=== PATIENT | female | born 1950 | race American Indian/Alaskan Native ===

== ENCOUNTER 2018-08-08 07:13 | Emergency (ER) | payer MEDICARE ==
[2018-08-08 07:20] VITALS: BP 148/80
[2018-08-08] MEDS ORDERED: TORADOL IM ONE (08:01)
[2018-08-08] MEDS ORDERED: NORCO 7.5/325 PO ONE (08:04)
--- NOTE | 2018-08-08 08:07 | Emergency Department Report ---
ED Back Pain/Injury HPI - General Chief Complaint: Back Pain/Injury Stated Complaint: BACK/LEG PAIN Time Seen by Provider: 08/08/18 07:29 Source: patient Limitations: No Limitations - History of Present Illness Initial Comments: This is a 67-year-old female nontoxic, well nourished in appearance, no acute signs of distress presents to the ED with c/o of lower back pain. Patient states that pain radiates through to his left lower extremity. Patient denies any trauma. Denies any bladder or bowel instability. Patient denies any urinary symptoms. Denies any fever, chills, nausea, vomiting, headache, stiff neck, chest pain or shortness of breath. Patient denies any numbness or tingling. Denies any allergies. PMH includes HTN and DM. MD Complaint: back pain -: This morning Similar Symptoms Previously: Yes Place: home Radiation: left leg Severity: mild Severity scale (0 -10): 8 Quality: aching Consistency: intermittent Improves With: immobilization, sitting upright Worsens With: movement, walking Context: while lifting, turning/twisting Associated Symptoms: denies other symptoms. denies: confusion, weakness, chest pain, numbness, difficulty walking, cough, difficulty urinating, diaphoresis, incontinence, fever/chills, constipation, headaches, abdominal pain, loss of appetite, malaise, nausea/vomiting, rash, seizure, shortness of breath, syncope - Related Data Previous Rx's Medication Instructions Recorded Last Taken Type Acetaminophen/Codeine [Tylenol #3] 1 tab PO Q6H PRN #15 tab 10/25/14 Unknown Rx Amoxicillin [Trimox CAP] 500 mg PO Q8H #30 capsule 10/25/14 Unknown Rx predniSONE [Deltasone] 20 mg PO BID #10 tab 10/25/14 Unknown Rx Ibuprofen [Motrin] 600 mg PO Q8H PRN #20 tablet 08/08/18 Unknown Rx methOCARBAMOL [Robaxin TAB] 500 mg PO BID PRN #10 tablet 08/08/18 Unknown Rx Allergies Allergy/AdvReac Type Severity Reaction Status Date / Time No Known Allergies Allergy Verified 08/08/18 07:15 ED Review of Systems ROS: Stated complaint: BACK/LEG PAIN Other details as noted in HPI Constitutional: denies: chills, fever Eyes: denies: eye pain, eye discharge, vision change ENT: denies: ear pain, throat pain Respiratory: denies: cough, shortness of breath, wheezing Cardiovascular: denies: chest pain, palpitations Endocrine: no symptoms reported Gastrointestinal: denies: abdominal pain, nausea, diarrhea Genitourinary: denies: urgency, dysuria, discharge Musculoskeletal: back pain. denies: joint swelling, arthralgia Skin: denies: rash, lesions Neurological: denies: headache, weakness, paresthesias Psychiatric: denies: anxiety, depression Hematological/Lymphatic: denies: easy bleeding, easy bruising ED Past Medical Hx - Past Medical History Hx Hypertension: Yes Hx Arthritis: Yes (left knee) - Surgical History Hx Cholecystectomy: Yes - Social History Smoking Status: Never Smoker Substance Use Type: None - Medications Home Medications: Home Medications Medication Instructions Recorded Confirmed Last Taken Type Acetaminophen/Codeine [Tylenol #3] 1 tab PO Q6H PRN #15 tab 10/25/14 Unknown Rx Amoxicillin [Trimox CAP] 500 mg PO Q8H #30 capsule 10/25/14 Unknown Rx predniSONE [Deltasone] 20 mg PO BID #10 tab 10/25/14 Unknown Rx Ibuprofen [Motrin] 600 mg PO Q8H PRN #20 tablet 08/08/18 Unknown Rx methOCARBAMOL [Robaxin TAB] 500 mg PO BID PRN #10 tablet 08/08/18 Unknown Rx ED Physical Exam - General Limitations: No Limitations General appearance: alert, in no apparent distress - Head Head exam: Present: atraumatic, normocephalic - Eye Eye exam: Present: normal appearance - Neck Neck exam: Present: normal inspection, full ROM - GI/Abdominal GI/Abdominal exam: Present: soft, normal bowel sounds. Absent: distended, tenderness, guarding, rebound, rigid, diminished bowel sounds - Extremities Exam Extremities exam: Present: normal inspection, full ROM, normal capillary refill. Absent: tenderness, calf tenderness - Back Exam Back exam: Present: normal inspection, full ROM, paraspinal tenderness (right lumbar paraspinal area). Absent: tenderness, CVA tenderness (R), CVA tenderness (L), muscle spasm, vertebral tenderness, rash noted - Expanded Back Exam Expanded Back exam: Absent: saddle anesthesia Back exam: Negative Straight Leg Raising: Left, Right - Neurological Exam Neurological exam: Present: alert, oriented X3 - Psychiatric Psychiatric exam: Present: normal affect, normal mood - Skin Skin exam: Present: warm, dry, intact, normal color. Absent: rash ED Course Vital Signs 08/08/18 08/08/18 07:17 07:19 Temperature 97.9 F 97.9 F Pulse Rate 68 68 Respiratory 18 16 Rate Blood Pressure 148/80 Blood Pressure 148/80 [Left] O2 Sat by Pulse 99 99 Oximetry - Reevaluation(s) Reevaluation #1: 08/08/18 08:11 Patient is speaking in full sentences with no signs of distress noted. ED Medical Decision Making - Medical Decision Making This is a 67-year-old female that presents with low back strain. Patient is stable was examined by me. There is no spinal tenderness. There is no cauda equina syndrome during examination. No bladder or bowel instability. Patient received Toradol 60 mg IM in the ED which she stated that her symptoms has resolved and subsided. CT without cotrast obtained and dictated by the radiologist. Patient is notified of the CT results with no questions noted by the patient. Patient is discharged with muscle relaxant and Motrin. Patient was instructed not to operate any machinery while taking muscle relaxant as they cause her drowsiness. Patient was referred to Follow-up with a primary care doctor in 3-5 days or if symptoms worsen and continue return to emergency room as soon as possible. At time of discharge, the patient does not seem toxic or ill in appearance. No acute signs of distress noted. Patient agrees to discharge treatment plan of care. No further questions noted by the patient. This chart is dictated with using [employer] Critical care attestation.: If time is entered above; I have spent that time in minutes in the direct care of this critically ill patient, excluding procedure time. ED Disposition Clinical Impression: Degenerative joint disease (DJD) of lumbar spine Qualifiers: Spinal osteoarthritis complication: unspecified spinal osteoarthritis Qualified Code(s): M47.816 - Spondylosis without myelopathy or radiculopathy, lumbar region Sciatica Qualifiers: Laterality: right Qualified Code(s): M54.31 - Sciatica, right side Low back strain Qualifiers: Encounter type: initial encounter Qualified Code(s): S39.012A - Strain of muscle, fascia and tendon of lower back, initial encounter Disposition: - TO HOME OR SELFCARE Is pt being admited?: No Does the pt Need Aspirin: No Condition: Stable Instructions: Sciatica (ED), Degenerative Disc Disease (ED), Methocarbamol (By mouth) Additional Instructions: Follow-up with a primary care doctor in 3-5 days or if symptoms worsen and continue return to emergency room as soon as possible. Take ibuprofen and Robaxin as prescribed. Do not operate heavy machinery while taking Robaxin due to sedation Prescriptions: Ibuprofen [Motrin] 600 mg PO Q8H PRN #20 tablet PRN Reason: Pain methOCARBAMOL [Robaxin TAB] 500 mg PO BID PRN #10 tablet PRN Reason: Muscle Spasm Referrals: PRIMARY CARE, [Referring] - 3-5 Days ELLIE BONNER MD [Staff Physician] - 3-5 Days [facility] [Outside] - 3-5 Days [facility] [Outside] - 3-5 Days
--- NOTE | 2018-08-08 08:52 | Cat Scan Report ---
CT LUMBAR SPINE WITHOUT CONTRAST History: Low back pain. Technique: Helical CT with sagittal and coronal reformatted images. Findings: Moderate multilevel degenerative disc disease and facet arthropathy are identified. L4-5 and L5-S1 are the most affected levels. No evidence for compression deformity, subluxation or bone lesion. Mild symmetric degenerative changes in the SI joints. 5 mm left renal stone is noted. IMPRESSION: No acute process. Lumbar spondylosis. Left renal stone.
== END 2018-08-08 09:19 | disposition home or self-care (01) ==
LOC: ED 07:13
DX: S39.012A Strain of muscle, fascia and tendon of lower back, initial encounter (principal); M47.816 Spondylosis without myelopathy or radiculopathy, lumbar region; M54.31 Sciatica, right side; I10 Essential (primary) hypertension; M17.12 Unilateral primary osteoarthritis, left knee; Z90.49 Acquired absence of other specified parts of digestive tract; X58.XXXA Exposure to other specified factors, initial encounter; Y93.89 Activity, other specified; Y92.009 Unspecified place in unspecified non-institutional (private) residence as the place of occurrence of the external cause; Y99.8 Other external cause status
CPT/HCPCS: 72131; 96372; 99284; J1885

== ENCOUNTER 2018-10-18 11:07 | Emergency (ER) | payer MEDICARE ==
[2018-10-18 11:18] VITALS: BP 130/72
[2018-10-18] MEDS ORDERED: ZOFRAN ODT PO ONE (11:19)
--- NOTE | 2018-10-18 11:19 | Emergency Department Report ---
Blank Doc - Documentation Documentation: Pt states at 6 AM began having N/V/D only abd discomfort during emesis no fever no urinary sx no sick contact no hematochezia, no hematemesis no water from a different source, no recent abx PMHx DM, GERD, HTN no allergies to medications non smoker non drinker no drug use labs [facility] for further eval will give zofran in triage
[2018-10-18 11:56] LABS: Basophils % (Auto) 0.4 % (0.0-1.8); Eosinophils # (Auto) 0.1 K/mm3 (0.0-0.4); Eosinophils % (Auto) 0.8 % (0.0-4.3); Hematocrit 36.6 % (30.3-42.9); Hemoglobin 12.2 gm/dl (10.1-14.3); Lymphocytes # (Auto) 0.8 K/mm3 (1.2-5.4); Lymphocytes % (Auto) 8.6 % (13.4-35.0); Mean Corpuscular HGB Conc 33 % (30-34); Mean Corpuscular Volume 84 fl (79-97); Monocytes # (Auto) 0.4 K/mm3 (0.0-0.8); Monocytes % (Auto) 3.8 % (0.0-7.3); Platelet Count 304 K/mm3 (140-440); Red Blood Count 4.35 M/mm3 (3.65-5.03)
[2018-10-18 12:03] LABS: Bilirubin,Urine NEG (Negative); Blood,Urine NEG (Negative); Color,Urine Yellow (Yellow); Hyaline Casts,Urine 15 /LPF; Mucus,Urine 3+ /HPF; Urobilinogen,Urine < 2.0 mg/dL (<2.0)
[2018-10-18] MEDS ORDERED: NACL 0.9% 1000 ML 1,000 ML IV ONE (12:04)
--- NOTE | 2018-10-18 12:09 | Emergency Department Report ---
HPI - General Chief Complaint: Nausea/Vomiting/Diarrhea Time Seen by Provider: 10/18/18 11:16 - HPI HPI: Room 6 The patient is a 68-year-old female presented with a chief complaint of nausea vomiting and diarrhea. The patient states she went to sleep last night in her usual state of health. When she awakened this morning she felt as though she had to go to the bathroom when she did she had copious amounts of watery diarrhea. Patient states she then developed nausea and vomiting. The patient states her last meal prior to her symptoms occurred yesterday afternoon at 17:00 and consisted of a chicken sandwich and tajik fries from [employer] The patient complains of mid epigastric abdominal pain with vomiting. Patient denies history of fever, sick contacts or recent antibiotic use. Location: Gastrointestinal system Duration: Onset this morning Quality: [See above] Severity: Moderate Modifying factors: [see above] Context: [see above] Mode of transportation: [not driving] ED Past Medical Hx - Past Medical History Hx Hypertension: Yes Hx Diabetes: Yes Hx Arthritis: Yes (left knee) - Surgical History Hx Cholecystectomy: Yes - Family History Family history: no significant - Social History Smoking Status: Never Smoker Substance Use Type: None - Medications Home Medications: Home Medications Medication Instructions Recorded Confirmed Last Taken Type Acetaminophen/Codeine [Tylenol #3] 1 tab PO Q6H PRN #15 tab 10/25/14 Unknown Rx Amoxicillin [Trimox CAP] 500 mg PO Q8H #30 capsule 10/25/14 Unknown Rx predniSONE [Deltasone] 20 mg PO BID #10 tab 10/25/14 Unknown Rx Ibuprofen [Motrin] 600 mg PO Q8H PRN #20 tablet 08/08/18 Unknown Rx methOCARBAMOL [Robaxin TAB] 500 mg PO BID PRN #10 tablet 08/08/18 Unknown Rx Diphenoxylate/Atropine [Lomotil] 1 - 2 tab PO QID PRN #20 tablet 10/18/18 Unknown Rx HYDROcodone/APAP 5-325 [[place] 1 - 2 each PO Q6HR PRN #10 tablet 10/18/18 Un known Rx 5/325] Ondansetron [Zofran ODT TAB] 8 mg PO Q8HR #20 tab.rapdis 10/18/18 Unknown Rx ED Review of Systems ROS: Stated complaint: VOMITNG/LOOSE BOWELS Other details as noted in HPI Constitutional: denies: fever Eyes: denies: eye pain ENT: denies: throat pain Respiratory: no symptoms reported Cardiovascular: denies: chest pain Endocrine: no symptoms reported Gastrointestinal: abdominal pain, nausea, vomiting, diarrhea Genitourinary: denies: dysuria Musculoskeletal: denies: back pain Neurological: denies: headache Physical Exam - Physical Exam Vital Signs: Vital Signs 10/18/18 11:17 Temperature 97.9 F Pulse Rate 84 Respiratory 16 Rate Blood Pressure 130/72 [Left] O2 Sat by Pulse 100 Oximetry Physical Exam: GENERAL: The patient is well-developed well-nourished female lying on stretcher not appearing to be in acute distress. [] HEENT: Normocephalic. Atraumatic. Extraocular motions are intact. Patient has moist mucous membranes. NECK: Supple. Trachea midline CHEST/LUNGS: Clear to auscultation. There is no respiratory distress noted. HEART/CARDIOVASCULAR: Regular. There is no tachycardia. There is no gallop rub or murmur. ABDOMEN: Abdomen is soft, with tenderness to palpation greatest in the midepigastric region. There is some discomfort to palpation in the left upper quadrant and right upper quadrant. The remainder of the abdomen is soft and n ontender. Patient has normal bowel sounds. There is no abdominal distention. SKIN: There is no rash. There is no edema. There is no diaphoresis. NEURO: The patient is awake, alert, and oriented. The patient is cooperative. The patient has normal speech MUSCULOSKELETAL: There is no evidence of acute injury. ED Course Vital Signs 10/18/18 11:17 Temperature 97.9 F Pulse Rate 84 Respiratory 16 Rate Blood Pressure 130/72 [Left] O2 Sat by Pulse 100 Oximetry - Reevaluation(s) Reevaluation #1: 10/18/18 14:13 Patient tolerating by mouth. Patient denies abdominal pain - Consultations Consultation #1: 10/18/18 13:35 Dr. Rizo paged 10/18/18 13:[address] Rizo- may have patient follow up in office Sunday (10/22/2018) for repeat labs ED Medical Decision Making - Lab Data Result diagrams: 10/18/18 11:42 10/18/18 11:42 Laboratory Tests 10/18/18 10/18/18 10/18/18 11:21 11:40 11:42 WBC 9.6 RBC 4.35 Hgb 12.2 Hct 36.6 MCV 84 MCH 28 MCHC 33 RDW 14.0 Plt Count 304 Lymph % (Auto) 8.6 L [place] % (Auto) 3.8 Eos % (Auto) 0.8 Baso % (Auto) 0.4 Lymph # 0.8 L [place] # 0.4 Eos # 0.1 Baso # 0.0 Seg Neutrophils % 86.4 H Seg Neutrophils # 8.3 H Sodium Potassium Chloride Carbon Dioxide Anion Gap BUN Creatinine Estimated GFR BUN/Creatinine Ratio Glucose POC Glucose 115 H Calcium Total Bilirubin AST ALT Alkaline Phosphatase Total Protein Albumin Albumin/Globulin Ratio Lipase Urine Color Yellow Urine Turbidity Slightly-cloudy Urine pH 5.0 Ur Specific [place] 1.019 Urine Protein 30 mg/dl Urine Glucose (UA) Neg Urine Ketones Neg Urine Blood Neg Urine Nitrite Neg Urine Bilirubin Neg Urine Urobilinogen < 2.0 Ur Leukocyte Esterase Tr Urine WBC (Auto) 6.0 Urine RBC (Auto) 5.0 U Epithel Cells (Auto) 4.0 Hyaline Casts 15 Urine Mucus 3+ Urine Yeast (Budding) Few 10/18/18 10/18/18 11:42 11:42 WBC RBC Hgb Hct MCV MCH MCHC RDW Plt Count Lymph % (Auto) [place] % (Auto) Eos % (Auto) Baso % (Auto) Lymph # [place] # Eos # Baso # Seg Neutrophils % Seg Neutrophils # Sodium 139 Potassium 3.1 L Chloride 101.9 Carbon Dioxide 23 Anion Gap 17 BUN 17 Creatinine 1.3 H Estimated GFR 49 BUN/Creatinine Ratio 13 Glucose 133 H POC Glucose Calcium 9.0 Total Bilirubin 0.60 AST 21 ALT 8 Alkaline Phosphatase 49 Total Protein 7.5 Albumin 4.1 Albumin/Globulin Ratio 1.2 Lipase 78 H Urine Color Urine Turbidity Urine pH Ur Specific [place] Urine Protein Urine Glucose (UA) Urine Ketones Urine Blood Urine Nitrite Urine Bilirubin Urine Urobilinogen Ur Leukocyte Esterase Urine WBC (Auto) Urine RBC (Auto) U Epithel Cells (Auto) Hyaline Casts Urine Mucus Urine Yeast (Budding) - Differential Diagnosis gastritis, small bowel junction Critical care attestation.: If time is entered above; I have spent that time in minutes in the direct care of this critically ill patient, excluding procedure time. ED Disposition Clinical Impression: Nausea vomiting and diarrhea, Elevated lipase, Hypokalemia Disposition: DC-01 TO HOME OR SELFCARE Is pt being admited?: No Does the pt Need Aspirin: No Condition: Stable Additional Instructions: Return to the emergency department immediately should you develop worsening sy mptoms, fever, inability to tolerate food or liquid or any other concerns. Prescriptions: Diphenoxylate/Atropine [Lomotil] 1 - 2 tab PO QID PRN #20 tablet PRN Reason: Diarrhea HYDROcodone/APAP 5-325 [[place] 5/325] 1 - 2 each PO Q6HR PRN #10 tablet PRN Reason: Pain Ondansetron [Zofran ODT TAB] 8 mg PO Q8HR #20 tab.rapdis Referrals: KERRY RIZO MD [Staff Physician] - 10/22/18 Time of Disposition: 14:14
[2018-10-18 12:11] LABS: Albumin 4.1 g/dL (3.9-5)
--- NOTE | 2018-10-18 13:28 | Cat Scan Report ---
CT ABDOMEN PELVIS WITHOUT CONTRAST: HISTORY: Epigastric abdominal pain, nausea, vomiting, diarrhea. COMPARISON: none. TECHNIQUE: Helical CT in 1.25mm intervals without IV contrast. Sagittal and coronal reconstructions. FINDINGS: Lung bases: Normal. Liver: Normal. Biliary system: Cholecystectomy. Pancreas: Normal. Spleen: Normal. Kidneys/ureters/bladder: A 5 mm calyceal stone is identified at the inferior pole of left kidney. There are a few scattered parapelvic cysts in the left kidney as well measuring less than 2 cm. The right kidney, collecting systems and bladder are unremarkable. Adrenal glands: Normal. Aorta: Moderate diffuse calcifications. No aneurysm. Intestines: Unremarkable given no oral contrast was administered. Appendix: Normal. Pelvic viscera: Normal. Ascites: None. Adenopathy: None. Musculoskeletal: Intact. IMPRESSION: No acute processes identified in the abdomen or pelvis. Left renal calculus, nonobstructing. Cholecystectomy.
[2018-10-18] MEDS ORDERED: K-DUR PO ONE (13:32)
== END 2018-10-18 14:41 | disposition home or self-care (01) ==
LOC: ED 11:07
DX: R11.2 Nausea with vomiting, unspecified (principal); R19.7 Diarrhea, unspecified; R10.9 Unspecified abdominal pain; E87.6 Hypokalemia; R74.8 Abnormal levels of other serum enzymes; I10 Essential (primary) hypertension; E11.9 Type 2 diabetes mellitus without complications; M17.12 Unilateral primary osteoarthritis, left knee
CPT/HCPCS: 36415; 74176; 80053; 81001; 82962; 83690; 85025; 96360; 99284; J7030; Q0162